=== PATIENT | female | born 1960 | race Caucasian/White ===

== ENCOUNTER 2017-12-21 09:30 | Emergency (ER) | payer SELFPAY, MEDICAID ==
[2017-12-21] MEDS: IBUPROFEN 800 MG TAB PO (12:39)
[2017-12-21] MEDS: ACETAMINOPHEN 500 MG TAB PO (12:39)
== END 2017-12-21 14:05 | disposition home or self-care (01) ==
LOC: FTE 09:30
DX: R51 Headache (principal); H66.93 Otitis media, unspecified, bilateral; J32.9 Chronic sinusitis, unspecified; R07.9 Chest pain, unspecified
CPT/HCPCS: 71046; 87400; 93005; 99285-25